=== PATIENT | female | born 1985 | race American Indian/Alaskan Native ===

== ENCOUNTER 2016-11-30 19:45 | Emergency (ER) | payer OTHER | END 2016-11-30 22:00 | disposition left against medical advice (07) | LOC: ED 19:45 | DX: L02.222 Furuncle of back [any part, except buttock and flank] (principal); R68.83 Chills (without fever); Z53.21 Procedure and treatment not carried out due to patient leaving prior to being seen by health care provider ==

== ENCOUNTER 2016-12-01 07:58 | Emergency (ER) | payer OTHER ==
[2016-12-01 08:11] VITALS: BP 119/82
[2016-12-01] MEDS ORDERED: XYLOCAINE 1% 20 mL INFILTRATI ONE (08:24)
[2016-12-01] MEDS ORDERED: XYLOCAINE 1% MPF 5 mL ONE (08:33)
--- NOTE | 2016-12-01 09:42 | Emergency Department Report ---
Abscess Boil HPI - HPI Chief Complaint: Skin/Abscess/Foreign Body Stated Complaint: FEVER/BOIL ON PRIVATE AREA Time Seen by Provider: 12/01/16 08:18 Duration: 3 Days Location: Perianal Severity: Moderate History: Yes Fever (reports last night (subjective)), Yes Pain, Yes Previous History, No Purulent Drainage, No Numbness, No Foreign Body, No Insect Bite Home Medications: Previous Rx's Medication Instructions Recorded Last Taken Type Ibuprofen [Motrin] 800 mg PO Q8HR PRN #15 tablet 12/01/16 Unknown Rx Sulfamethoxazole/Trimethoprim 1 each PO BID #20 tablet 12/01/16 Unknown Rx [Bactrim DS TAB] Allergies/Adverse Reactions: Allergies Allergy/AdvReac Type Severity Reaction Status Date / Time morphine AdvReac Itching Verified 12/01/16 08:06 strawberry AdvReac Swelling Verified 07/06/16 19:25 tomato AdvReac Swelling Verified 07/06/16 19:25 [email or web address] Allergy Swelling Uncoded 12/01/16 08:04 ED Review of Systems ROS: Stated complaint: FEVER/BOIL ON PRIVATE AREA Other details as noted in HPI Comment: All other systems reviewed and negative Constitutional: fever. denies: chills Eyes: denies: eye pain, eye discharge, vision change ENT: denies: ear pain, throat pain Respiratory: denies: cough, shortness of breath, wheezing Cardiovascular: denies: chest pain, palpitations Endocrine: no symptoms reported Gastrointestinal: denies: abdominal pain, nausea, diarrhea Genitourinary: denies: urgency, dysuria, discharge Musculoskeletal: denies: back pain, joint swelling, arthralgia Skin: denies: rash, lesions Neurological: denies: headache, weakness, paresthesias Psychiatric: denies: anxiety, depression Hematological/Lymphatic: denies: easy bleeding, easy bruising ED Past Medical Hx - Past Medical History Previous Medical History?: No - Surgical History Additional Surgical History: right shoulder rotator cuff surgery - Social History Smoking Status: Current Every Day Smoker Substance Use Type: None - Medications Home Medications: Home Medications Medication Instructions Recorded Confirmed Last Taken Type Ibuprofen [Motrin] 800 mg PO Q8HR PRN #15 tablet 12/01/16 Unknown Rx Sulfamethoxazole/Trimethoprim 1 each PO BID #20 tablet 12/01/16 Unknown Rx [Bactrim DS TAB] ED Abscess Boil Physical Exam - Exam General: Vital signs noted. No distress. Alert and acting appropriately. Size: 2 cm (R labial) Exam: Yes Tenderness, Yes Fluctuance, Yes Normal Neurologic Exam, Yes Normal Circulation, No Surrounding Cellulites/Erythema, No Lymphangitis, No Crepitation , No Heart Murmur I & D Note - I & D Note I & D Note: Pt prepped in normal sterile fashion. 3 mL of 1% lidocaine injected. Betadine applied. Small incision with 11 blade made. Small amount of purulent drainage noted. Dressing applied. Pt tolerated procedure well. ED Course Vital Signs 12/01/16 08:00 Temperature 98.4 F Pulse Rate 100 H Respiratory 18 Rate Blood Pressure 119/82 O2 Sat by Pulse 99 Oximetry - Reevaluation(s) Reevaluation #1: 12/01/16 08:48 nad Critical care attestation.: If time is entered above; I have spent that time in minutes in the direct care of this critically ill patient, excluding procedure time. ED Medical Decision Making - Medical Decision Making Pt with R labial abscess s/p I&D. Tolerated well. Follow up advised. Stable for d/c. - Differential Diagnosis abscess, cellulitis ED Disposition Clinical Impression: Abscess of labia Disposition: DISCHARGED TO HOME OR SELFCARE Is pt being admited?: No Condition: Good Instructions: Abscess (ED) Prescriptions: Ibuprofen [Motrin] 800 mg PO Q8HR PRN #15 tablet PRN Reason: Pain Sulfamethoxazole/Trimethoprim [Bactrim DS TAB] 1 each PO BID #20 tablet Referrals: PRIMARY CAREMD [Primary Care Provider] - 3-5 Days RICHARD DEE MD [Staff Physician] - 3-5 Days Time of Disposition: 08:54
== END 2016-12-01 09:00 | disposition home or self-care (01) ==
LOC: ED 07:58
DX: N76.4 Abscess of vulva (principal); F17.200 Nicotine dependence, unspecified, uncomplicated; Z91.018 Allergy to other foods; Z88.5 Allergy status to narcotic agent

== ENCOUNTER 2017-02-27 08:08 | Emergency (ER) | payer OTHER ==
[2017-02-27] MEDS ORDERED: TYLENOL ONE (08:12)
[2017-02-27] MEDS ORDERED: TYLENOL PO ONE (08:16)
--- NOTE | 2017-02-27 11:22 | Emergency Department Report ---
ED Fever HPI - General Chief Complaint: Fever Stated Complaint: BODY HURTING Time Seen by Provider: 02/27/17 10:52 - History of Present Illness Initial Comments: 31-year-old female past medical history none presents with complaint of 3-4 days of body aches and decreased appetite and intermittent fevers. Patient is awake alert and oriented 3 not in acute distress denies any earache, mild sore throat denies any cough no chest pain or shortness of breath denies any dysuria. 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 ED Review of Systems ROS: Stated complaint: BODY HURTING Other details as noted in HPI Constitutional: denies: chills, fever Eyes: denies: eye pain, eye discharge, vision change ENT: denies: ear pain, throat pain Respiratory: denies: cough, shortness of breath, wheezing Cardiovascular: denies: chest pain, palpitations Endocrine: no symptoms reported Gastrointestinal: denies: abdominal pain, nausea, diarrhea Genitourinary: denies: urgency, dysuria, discharge Musculoskeletal: denies: back pain, joint swelling, arthralgia Skin: denies: rash, lesions Neurological: denies: headache, weakness, paresthesias Psychiatric: denies: anxiety, depression Hematological/Lymphatic: denies: easy bleeding, easy bruising ED Past Medical Hx - Past Medical History Previous Medical History?: No - Surgical History Past Surgical History?: Yes Additional Surgical History: right shoulder rotator cuff surgery - Social History Smoking Status: Never Smoker Substance Use Type: None - Medications Home Medications: Home Medications Medication Instructions Recorded Confirmed Last Taken Type Ibuprofen [Motrin] 800 mg PO Q8HR PRN #15 tablet 12/01/16 Unknown Rx Sulfamethoxazole/Trimethoprim 1 each PO BID #20 tablet 12/01/16 Unknown Rx [Bactrim DS TAB] Naproxen [Naprosyn TAB] 500 mg PO BID PRN #30 tablet 02/27/17 Unknown Rx Nitrofurantoin [place]/M-Cryst 100 mg PO Q12HR #14 capsule 02/27/17 Unknown Rx [Macrobid CAP] Ondansetron [Zofran Odt] 4 mg PO Q8H PRN #20 tab.rapdis 02/27/17 Unknown Rx ED Physical Exam - General Limitations: No Limitations General appearance: alert, in no apparent distress - Head Head exam: Present: atraumatic, normocephalic - Eye Eye exam: Present: normal appearance, PERRL, EOMI - ENT ENT exam: Present: mucous membranes moist - Neck Neck exam: Present: normal inspection, full ROM - Respiratory Respiratory exam: Present: normal lung sounds bilaterally. Absent: respiratory distress - Cardiovascular Cardiovascular Exam: Present: regular rate, normal rhythm. Absent: systolic murmur, diastolic murmur, rubs, gallop - GI/Abdominal GI/Abdominal exam: Present: soft, normal bowel sounds - Extremities Exam Extremities exam: Present: normal inspection - Back Exam Back exam: Present: normal inspection - Neurological Exam Neurological exam: Present: alert, oriented X3 - Psychiatric Psychiatric exam: Present: normal affect, normal mood - Skin Skin exam: Present: warm, dry, intact, normal color. Absent: rash ED Course Vital Signs 02/27/17 02/27/17 08:12 11:35 Temperature 100.5 F H Pulse Rate 110 H Respiratory 18 16 Rate Blood Pressure 129/82 O2 Sat by Pulse 98 Oximetry ED Medical Decision Making - Medical Decision Making A/P: Urinary tract infection 1-Macrobid twice a day 7 days 2-naproxen when necessary 3-patient has no CVA tenderness will treat her cystitis/UTI 4-follow up with primary care doctor. I advised patient if she develops nausea vomiting fever chills or inability to tolerate by mouth to return to the ED Critical care attestation.: If time is entered above; I have spent that time in minutes in the direct care of this critically ill patient, excluding procedure time. ED Disposition Clinical Impression: Urinary tract infection Qualifiers: Urinary tract infection type: acute cystitis Hematuria presence: without hematuria Qualified Code(s): N30.00 - Acute cystitis without hematuria Fever Qualifiers: Fever type: unspecified Qualified Code(s): R50.9 - Fever, unspecified Disposition: DISCHARGED TO HOME OR SELFCARE Is pt being admited?: No Does the pt Need Aspirin: No Condition: Stable Instructions: Urinary Tract Infection in Women (ED), Fever in Adults (ED) Prescriptions: Naproxen [Naprosyn TAB] 500 mg PO BID PRN #30 tablet PRN Reason: Fever Nitrofurantoin [place]osh/M-Cryst [Macrobid CAP] 100 mg PO Q12HR #14 capsule Ondansetron [Zofran Odt] 4 mg PO Q8H PRN #20 tab.rapdis PRN Reason: Nausea Referrals: ADITYA JUAREZ MD [Staff Physician] - 3-5 Days [facility] [Provider Group] - 3-5 Days Forms: Work/School Release Form(ED) Time of Disposition: 11:59
[2017-02-27] MEDS ORDERED: MOTRIN PO ONE (11:24)
[2017-02-27] MEDS ORDERED: ZOFRAN ORAL LIQ PO ONE (11:25)
[2017-02-27 11:46] LABS: Bacteria,Urine 2+ /HPF (Negative); Bilirubin,Urine NEG (Negative); Blood,Urine SM (Negative); Ketones,Urine NEG (Negative); Leukocyte Esterase,Urine MOD (Negative); Nitrite,Urine NEG (Negative); Protein,Urine <15 mg/dL mg/dL (Negative)
[2017-02-27 12:12] VITALS: BP 126/78
== END 2017-02-27 12:12 | disposition home or self-care (01) ==
LOC: ED 08:08
DX: N30.00 Acute cystitis without hematuria (principal); R50.9 Fever, unspecified
CPT/HCPCS: 81001; 81025; 87086; 99283; Q0162

== ENCOUNTER 2017-05-03 07:07 | Emergency (ER) | payer OTHER ==
[2017-05-03 08:54] VITALS: BP 94/57
--- NOTE | 2017-05-03 09:16 | Emergency Department Report ---
HPI - General Chief Complaint: Urogenital-Female Time Seen by Provider: 05/03/17 08:44 - HPI HPI: Patient is a 32-year-old female who presents to ED complaining of vaginal pain and swelling 1 week. Patient states about a week ago she shaved her vaginal area. Patient states that she noticed right labia pain and swelling. She denies vaginal discharge, vaginal bleeding, dysuria, fever, nausea, vomiting, abdominal pain. ED Past Medical Hx - Past Medical History Previous Medical History?: Yes Additional medical history: Vaginal boils - Surgical History Past Surgical History?: Yes Additional Surgical History: right shoulder rotator cuff surgery - Social History Smoking Status: Current Every Day Smoker Substance Use Type: Alcohol, Non Opiate Pain - Medications Home Medications: Home Medications Medication Instructions Recorded Confirmed Last Taken Type Naproxen [Naprosyn TAB] 500 mg PO BID PRN #30 tablet 02/27/17 Unknown Rx Nitrofurantoin [place]/M-Cryst 100 mg PO Q12HR #14 capsule 02/27/17 Unknown Rx [Macrobid CAP] Ondansetron [Zofran Odt] 4 mg PO Q8H PRN #20 tab.rapdis 02/27/17 Unknown Rx Ibuprofen [Motrin 800 MG tab] 800 mg PO Q8HR PRN #15 tablet 05/03/17 Unknown Rx Sulfamethoxazole/Trimethoprim 1 each PO BID #20 tablet 05/03/17 Unknown Rx [Bactrim DS TAB] ED Review of Systems ROS: Stated complaint: VAGINAL RASH Other details as noted in HPI Constitutional: denies: chills, fever Eyes: denies: eye pain, eye discharge, vision change ENT: denies: ear pain, throat pain Respiratory: denies: cough, shortness of breath, wheezing Cardiovascular: denies: chest pain, palpitations Endocrine: no symptoms reported Gastrointestinal: denies: abdominal pain, nausea, diarrhea Genitourinary: denies: urgency, dysuria, discharge Musculoskeletal: denies: back pain, joint swelling, arthralgia Skin: denies: rash, lesions Neurological: denies: headache, weakness, paresthesias Psychiatric: denies: anxiety, depression Hematological/Lymphatic: denies: easy bleeding, easy bruising Physical Exam - Physical Exam Vital Signs: Vital Signs 05/03/17 05/03/17 07:51 08:54 Temperature 98.4 F 98.8 F Pulse Rate 78 77 Respiratory 20 20 Rate Blood Pressure 116/64 Blood Pressure 94/57 [Left] O2 Sat by Pulse 100 99 Oximetry Physical Exam: GENERAL: Alert and oriented x3, no apparent distress, Normal Gait, atraumatic. HEAD: Head is normocephalic and a-traumatic. LUNGS: Symetrical with respiration, No wheezing, no rales or crackles, CTAB. HEART: S1, S2 present, regular rate and rhythm without murmur, no rubs, no gallops. Non tender to palpation ABDOMEN: No organomegaly was noted,Positive bowel sounds, soft, and non- distended. . Nontender to palpation on all Quadrants, NO CVA tenderness. GENITOURINARY: External genitalia right labial majora swollen, tender to palpation, active drainage. Vaginal vault is without discharge. Uterus is noted to be of normal size and nontender. No cervical motion tenderness. No masses are palpated. The adnexa are without masses or tenderness. SKIN: Warm and dry, No lesions, No ulceration or induration present. ED Course Vital Signs 05/03/17 05/03/17 07:51 08:54 Temperature 98.4 F 98.8 F Pulse Rate 78 77 Respiratory 20 20 Rate Blood Pressure 116/64 Blood Pressure 94/57 [Left] O2 Sat by Pulse 100 99 Oximetry - I & D Right Genitals Type of Procedure: Simple Site: labia majora Blade Size: 11 I & D Procedure: betadine prep, sterile drapes applied, sterile dressing applied ED Medical Decision Making - Medical Decision Making 32-year-old female presents with labial abscess/UTI ED course: UA and test ordered. Urinalysis positive for anterior test neg. Discussed the patient positive UA and will be sent home with a trial of antibiotics for UTI and abscess Patient positioned appropriately, 4cc lidocaine with/without epinephrine was used as a local anesthetic. #11 blade scalpal used for single incision. Additional local anesthetic injected into surrounding viable tissue prior to blunt dissection of loculated adhesions. Copius drainage of pus . Procedure tolerated without complications. Wound dressed with sterile 4x4 guaze and paper tape. Pt tolerated procedure well. Discussed the patient to follow up with primary care physician. Vital signs are normal patient is in no acute distress. Patient states to feeling much better. Discussed the patient take medication as prescribed Critical care attestation.: If time is entered above; I have spent that time in minutes in the direct care of this critically ill patient, excluding procedure time. ED Disposition Clinical Impression: Abscess of right genital labia UTI (urinary tract infection) Qualifiers: Urinary tract infection type: acute cystitis Hematuria presence: with hematuria Qualified Code(s): N30.01 - Acute cystitis with hematuria Disposition: TO HOME OR SELFCARE Is pt being admited?: No Does the pt Need Aspirin: No Condition: Stable Instructions: Abscess (ED), Abscess Incision and Drainage (ED), Urinary Tract Infection in Women (ED) Additional Instructions: Follow-up with primary care in 5 days Prescriptions: Ibuprofen [Motrin 800 MG tab] 800 mg PO Q8HR PRN #15 tablet PRN Reason: Pain Sulfamethoxazole/Trimethoprim [Bactrim DS TAB] 1 each PO BID #20 tablet Referrals: PRIMARY CARE, [Primary Care Provider] [facility] Days [facility] [Outside] - 3-5 Days [facility] [Outside] - 3-5 Days Forms: Work/School Release Form(ED) Time of Disposition: 10:49
[2017-05-03 09:39] LABS: Bacteria,Urine 1+ /HPF (Negative); Bilirubin,Urine NEG (Negative); Blood,Urine SM (Negative); Ketones,Urine TR mg/dL (Negative); Leukocyte Esterase,Urine SM (Negative); Mucus,Urine FEW /HPF; Nitrite,Urine NEG (Negative); Protein,Urine <15 mg/dL mg/dL (Negative)
[2017-05-03] MEDS ORDERED: XYLOCAINE 1% 20 mL INFILTRATI NR (10:15)
== END 2017-05-03 10:59 | disposition home or self-care (01) ==
LOC: ED 07:07
DX: N30.01 Acute cystitis with hematuria (principal); N76.4 Abscess of vulva; F17.200 Nicotine dependence, unspecified, uncomplicated
CPT/HCPCS: 81001; 81025; 99283

== ENCOUNTER 2017-07-08 08:49 | Emergency (ER) | payer OTHER ==
[2017-07-08 09:04] VITALS: BP 111/68
--- NOTE | 2017-07-08 11:13 | Emergency Department Report ---
ED ENT HPI - General Chief complaint: Dental/Oral Stated complaint: TOOTHACHE Time Seen by Provider: 07/08/17 11:03 Source: patient Mode of arrival: Ambulatory Limitations: No Limitations - History of Present Illness Initial comments: PT c/o R upper toothache x 2 weeks. PT states when her tooth originally started to hurt, she had facial swelling. PT states she went to [facility] and was given RX for PCN, Tramadol, and a liquid. PT states the swelling went down but her tooth still aches. PT states she was instructed to follow up with Dentist. PT states she called a Dentist and was dx with inflammation over the phone. PT states the dentist office told her to get the inflammation down and then they would see her. PT states today her toothache was 10/10, she took some Tylenol and it decreased to 8/10 MD complaint: tooth pain -: Gradual, week(s) (two ) 1 - pain Severity: severe Severity scale (0 -10): 8 Consistency: constant Improves with: other medication (PCN and Tylenol ) Worsens with: eating Context- Dental: history of dental caries, poor dental care Associated Symptoms: toothache. denies: fever, gum swelling, sore throat - Related Data Allergies Allergy/AdvReac Type Severity Reaction Status Date / Time morphine AdvReac Itching Verified 12/01/16 08:06 strawberry AdvReac Swelling Verified 07/06/16 19:25 tomato AdvReac Swelling Verified 07/06/16 19:25 [email or web address] Allergy Swelling Uncoded 12/01/16 08:04 ED Dental HPI - General Chief complaint: Dental/Oral Stated complaint: TOOTHACHE Time Seen by Provider: 07/08/17 11:03 Source: patient Mode of arrival: Ambulatory Limitations: No Limitations - Related Data Allergies Allergy/AdvReac Type Severity Reaction Status Date / Time morphine AdvReac Itching Verified 12/01/16 08:06 strawberry AdvReac Swelling Verified 07/06/16 19:25 tomato AdvReac Swelling Verified 07/06/16 19:25 [email or web address] Allergy Swelling Uncoded 12/01/16 08:04 ED Review of Systems ROS: Stated complaint: TOOTHACHE Other details as noted in HPI Comment: All other systems reviewed and negative Constitutional: other (denies facial swelling ). denies: chills, fever ENT: dental pain Gastrointestinal: denies: nausea, vomiting Genitourinary: denies: abnormal menses Skin: denies: change in color ED Past Medical Hx - Past Medical History Previous Medical History?: No Additional medical history: Vaginal boils - Surgical History Past Surgical History?: Yes Additional Surgical History: right shoulder rotator cuff surgery - Social History Smoking Status: Current Every Day Smoker Substance Use Type: None ED Physical Exam - General Limitations: No Limitations General appearance: alert, in no apparent distress - Head Head exam: Present: atraumatic, normocephalic, normal inspection - Eye Eye exam: Present: normal appearance, PERRL, EOMI. Absent: conjunctival injection - ENT ENT exam: Present: normal orophraynx, mucous membranes moist, normal external ear exam - Expanded ENT Exam Expanded Mouth exam: Absent: drooling, trismus Teeth exam: Present: dental caries (multiple severely decayed teeth ), dental tenderness # (6, 7, 8 ). Absent: gingival enlargement Throat exam: Positive: normal inspection. Negative: tonsillar erythema, tonsillomegaly, tonsillar exudate - Neck Neck exam: Present: normal inspection, full ROM. Absent: tenderness, lymphadenopathy - Respiratory Respiratory exam: Present: normal lung sounds bilaterally. Absent: respiratory distress, chest wall tenderness - Cardiovascular Cardiovascular Exam: Present: regular rate, normal rhythm, normal heart sounds - GI/Abdominal GI/Abdominal exam: Present: soft. Absent: tenderness - Extremities Exam Extremities exam: Present: normal inspection, full ROM - Back Exam Back exam: Present: normal inspection, full ROM. Absent: tenderness, CVA tenderness (R), CVA tenderness (L) - Neurological Exam Neurological exam: Present: alert, oriented X3, normal gait - Psychiatric Psychiatric exam: Present: normal affect, normal mood - Skin Skin exam: Present: warm, dry, intact ED Course Vital Signs 07/08/17 08:59 Temperature 98.3 F Pulse Rate 79 Respiratory 16 Rate Blood Pressure 111/68 O2 Sat by Pulse 100 Oximetry - Reevaluation(s) Reevaluation #1: 07/08/17 11:14 PT aware of dx and plan of care. She is instructed to follow up with Dentist. She has no questions at this time. - Pulse Oximetry Interpretation Digit-Finger Initial Pulse Oximetry Readin Actions Taken: none ED Medical Decision Making - Differential Diagnosis toothache, dental abscess Critical Care Time: No Critical care attestation.: If time is entered above; I have spent that time in minutes in the direct care of this critically ill patient, excluding procedure time. ED Disposition Clinical Impression: Toothache, Dental caries Disposition: TO HOME OR SELFCARE Is pt being admited?: No Does the pt Need Aspirin: No Condition: Stable Instructions: Dental Abscess (ED), Dental Caries (ED), Toothache (ED) Additional Instructions: Good oral hygiene Follow up with Dentist in 3-5 days No driving or alcohol if you are needing to take Ultram for your pain Referrals: PRIMARY CARE, [Primary Care Provider] - 3-5 Days Time of Disposition: 11:17
== END 2017-07-08 11:23 | disposition home or self-care (01) ==
LOC: ED 08:49
DX: K02.9 Dental caries, unspecified (principal); F17.200 Nicotine dependence, unspecified, uncomplicated; Z88.6 Allergy status to analgesic agent; Z91.018 Allergy to other foods
CPT/HCPCS: 99282

== ENCOUNTER 2020-03-22 11:44 | Emergency (ER) | payer SELFPAY ==
[2020-03-22 11:52] VITALS: BP 120/61
--- NOTE | 2020-03-22 12:23 | Emergency Department Report ---
Chief Complaint: Hyperglycemia Stated Complaint: HIGH BLOOD SUGAR/MED REFILL Time Seen by Provider: 03/22/20 12:17 - HPI History of Present Illness: pt states that her sugar has been elevated at home. she states last night it was 331, states she drank koolaid at [employer]. she states that she has not taking her metformin for a month. she does not have a PCP. she has increased thirst and urination. she denies any fever, n/v/d, no abd pain, dysuria, CP, or SOB. no other PMHx. allergy: morphine Vitals are normal Blood glucose is 214 Medical screening examination performed and there is no threat to life or limb at this time Discussed in detail with patient diet and exercise Discussed with patient long-term risks associated with diabetes Dr. Demarco Sierra, ER attending reprinted patient's previous medication Discussed strict return precautions Patient given multiple community resources advised pt please take your metformin as prescribed. increase your water intake. avoid sugar intake including foods, drinks, candy, fruit juices, decrease your carbohydrate intake (pasta, rice, white bread). incorporate 30 minutes of daily exercise. follow up with a primary care doctor in the next 2-3 days. it is very important you follow up for chronic management of your diabetes and future refills. return to the emergency room for any new or worsening symptoms. - Exam Vital Signs: Vital Signs 03/22/20 11:48 Temperature 98.7 F Pulse Rate 89 Respiratory 20 Rate Blood Pressure 120/61 O2 Sat by Pulse 98 Oximetry MSE screening note: Focused history and physical exam performed. ED Disposition for MSE Clinical Impression: Type 2 diabetes mellitus Qualifiers: Diabetes mellitus termite inspector insulin use: without [place] [facility] use Diabetes mellitus complication status: with hyperglycemia Qualified Code(s): E11.65 - Type 2 diabetes mellitus with hyperglycemia Disposition: Z-07 MED SCREENING EXAM-LEFT Is pt being admited?: No Does the pt Need Aspirin: No Condition: Stable Instructions: Diabetes Mellitus Type 2 in Adults (ED) Additional Instructions: please take your metformin as prescribed. increase your water intake. avoid sugar intake including foods, drinks, candy, fruit juices, decrease your carbohydrate intake (pasta, rice, white bread). incorporate 30 minutes of daily exercise. follow up with a primary care doctor in the next 2-3 days. it is very important you follow up for chronic management of your diabetes and future refills. return to the emergency room for any new or worsening symptoms. Referrals: DWIGHT PINEDO MD [Staff Physician] - 3-5 Days [facility] [Provider Group] - 3-5 Days [facility], [LAB/CONTRACT] - 3-5 Days [facility] [Outside] - 3-5 Days Time of Disposition: 12:24 Print Language: PERSIAN
== END 2020-03-22 12:37 | disposition left against medical advice (07) ==
LOC: ED 11:44
DX: E11.65 Type 2 diabetes mellitus with hyperglycemia (principal)
CPT/HCPCS: 82962; 99282

== ENCOUNTER 2021-02-25 21:36 | Emergency (ER) | payer SELFPAY ==
[2021-02-25] MEDS ORDERED: LIDOCAINE (1%) 10 MG/1 ML VIAL 20 ML MDV INFILTRATI ONE (23:25)
[2021-02-25] MEDS ORDERED: ONDANSETRON 4 MG ODT TAB PO ONE (23:25)
[2021-02-25] MEDS ORDERED: CLINDAMYCIN 300 MG CAP PO ONE (23:25)
[2021-02-25] MEDS ORDERED: oxyCODONE /ACETAMINOPHEN 5-325MG TAB PO ONE (23:25)
--- NOTE | 2021-02-26 00:09 | Emergency Department Report ---
ED General Adult HPI - General Chief complaint: Skin/Abscess/Foreign Body Stated complaint: POSSIBLE ABSCESS Source: patient Mode of arrival: Ambulatory Limitations: No Limitations - History of Present Illness Initial comments: Patient is a 35-year-old -[place] female with a history of vpu-rtrdmxm-[id number] diabetes who presents to the ED with complaint of acute onset persistent painful swollen mild erythematous maculopapular rash on pilonidal area for the last 2 weeks, worse in the last 3 days. Patient states that she initially developed similar symptoms about 3 or 4 weeks ago and was treated for the same at another hospital emergency department where she underwent I&D procedure for the same and was given a prescription of oral Bactrim DS to take twice a day. Patient states that she has been taking the medication but she is yet to finish all his antibiotics. Patient states that her symptoms got worse in the last 3 days such that she has not been able to walk or sit down because of worsening pain and swelling. Patient denies dizziness, syncope, chest pain or shortness of breath, dizziness, syncope, nausea and vomiting or diarrhea, traumatic injury, abdominal pain, fall or change in vision. MD Complaint: swollen, painful erythematous rash on pilonidal area -: Sudden, week(s) (2) Location: buttocks Radiation: non-radiation Severity scale (0 -10): 8 Quality: aching, sharp Consistency: constant Improves with: none Worsens with: movement Associated Symptoms: denies other symptoms, fever/chills, rash (Swollen, severely painful mildly erythematous maculopapular rash on pilonidal area). denies: chest pain, diaphoresis, headaches, loss of appetite, malaise, nausea/vomiting, seizure, shortness of breath, syncope, weakness, other Treatments Prior to Arrival: NSAID - Related Data Previous Rx's Medication Instructions Recorded Last Taken Type Amoxicillin 500 mg PO BID #20 capsule 07/08/17 Unknown Rx Ibuprofen [Motrin] 600 mg PO Q8H PRN #15 tablet 07/08/17 Unknown Rx traMADoL [Ultram] 50 mg PO Q6HR PRN #7 tablet 07/08/17 Unknown Rx Sulfamethoxazole/Trimethoprim 1 each PO BID #20 tablet 03/09/20 Unknown Rx [Bactrim DS TAB] Clindamycin [Clindamycin CAP] 300 mg PO Q6H #40 cap 02/26/21 Unknown Rx Ibuprofen [Motrin 800 MG tab] 800 mg PO Q8HR PRN #30 tablet 02/26/21 Unknown Rx Allergies Allergy/AdvReac Type Severity Reaction Status Date / Time morphine AdvReac Itching Verified 12/01/16 08:06 strawberry AdvReac Swelling Verified 07/06/16 19:25 tomato AdvReac Swelling Verified 07/06/16 19:25 [email or web address] Allergy Swelling Uncoded 12/01/16 08:04 ED Review of Systems ROS: Stated complaint: POSSIBLE ABSCESS Other details as noted in HPI Constitutional: chills, fever, malaise Eyes: denies: eye pain, eye discharge, vision change ENT: denies: ear pain, throat pain Respiratory: denies: cough, shortness of breath, wheezing Cardiovascular: denies: chest pain, palpitations Endocrine: no symptoms reported Gastrointestinal: denies: abdominal pain, nausea, vomiting, diarrhea Genitourinary: denies: urgency, dysuria, discharge Musculoskeletal: myalgia. denies: back pain, joint swelling, arthralgia Skin: rash (swollen, mildly erythematous maculopapular rash on pilonidal area), change in color. denies: lesions, change in hair/nails, pruritus, other Neurological: denies: headache, weakness, paresthesias Psychiatric: denies: anxiety, depression Hematological/Lymphatic: denies: easy bleeding, easy bruising ED Past Medical Hx - Past Medical History Previous Medical History?: Yes Hx Diabetes: Yes Additional medical history: Vaginal boils - Surgical History Past Surgical History?: Yes Additional Surgical History: right shoulder rotator cuff surgery - Social History Smoking Status: Current Every Day Smoker Substance Use Type: None - Medications Home Medications: Home Medications Medication Instructions Recorded Confirmed Last Taken Type Amoxicillin 500 mg PO BID #20 capsule 07/08/17 Unknown Rx Ibuprofen [Motrin] 600 mg PO Q8H PRN #15 tablet 07/08/17 Unknown Rx traMADoL [Ultram] 50 mg PO Q6HR PRN #7 tablet 07/08/17 Unknown Rx Sulfamethoxazole/Trimethoprim 1 each PO BID #20 tablet 03/09/20 Unknown Rx [Bactrim DS TAB] Clindamycin [Clindamycin CAP] 300 mg PO Q6H #40 cap 02/26/21 Unknown Rx Ibuprofen [Motrin 800 MG tab] 800 mg PO Q8HR PRN #30 tablet 02/26/21 Unknown Rx ED Physical Exam - General Limitations: No Limitations General appearance: alert, in no apparent distress - Head Head exam: Present: atraumatic, normocephalic, normal inspection - Eye Eye exam: Present: normal appearance, PERRL, EOMI Pupils: Present: normal accommodation - ENT ENT exam: Present: normal exam, normal orophraynx, mucous membranes moist, TM's normal bilaterally, normal external ear exam - Neck Neck exam: Present: normal inspection, full ROM - Respiratory Respiratory exam: Present: normal lung sounds bilaterally. Absent: respiratory distress, wheezes, rales, rhonchi, chest wall tenderness, accessory muscle use, decreased breath sounds, prolonged expiratory - Cardiovascular Cardiovascular Exam: Present: normal rhythm, tachycardia, normal heart sounds. Absent: systolic murmur, diastolic murmur, rubs, gallop - GI/Abdominal GI/Abdominal exam: Present: soft, normal bowel sounds. Absent: tenderness, guarding, hyperactive bowel sounds, hypoactive bowel sounds, organomegaly - Extremities Exam Extremities exam: Present: normal inspection, full ROM, normal capillary refill - Back Exam Back exam: Present: normal inspection, full ROM. Absent: tenderness, CVA tenderness (R), CVA tenderness (L), muscle spasm, paraspinal tenderness - Neurological Exam Neurological exam: Present: alert, oriented X3, CN II-XII intact, normal gait, reflexes normal - Psychiatric Psychiatric exam: Present: normal affect, normal mood - Skin Skin exam: Present: warm, dry, intact, normal color, rash (Swollen severely tender, mildly erythematous fluctuant rash on pilonidal area), erythema ED Course Vital Signs 02/25/21 22:03 Temperature 100.1 F H Pulse Rate 108 H Respiratory 18 Rate Blood Pressure 113/62 O2 Sat by Pulse 99 Oximetry - I & D Sacrum Type of Procedure: Simple Site: Pilonidal area Blade Size: 11 I & D Procedure: betadine prep, sterile drapes applied, sterile dressing applied, gauze wick placed Progress: The area was cleaned with normal saline and Betadine solution, and lidocaine 5 cc solution was infiltrated into the area for anesthesia. When the anesthesia was fully achieved, the area was incised with a scalpel blade #11, and copious amounts of thick purulent discharge drained from the area. The wound was then debrided extensively with normal saline and fluid collections were broken with hemostat. The wound was then packed with iodoform quarter inch gauze and dressed appropriately. Patient tolerated procedure well. ED Medical Decision Making - Medical Decision Making This is a 35-year-old -[place] female with a history of wiu-rbdcgyu-bzytccqtn diabetes who presents to the ED with complaint of acute onset persistent painful swollen mild erythematous maculopapular rash on pilonidal area for the last 2 weeks, worse in the last 3 days. Patient states that she initially developed similar symptoms about 3 or 4 weeks ago and was treated for the same at another hospital emergency department where she underwent I&D procedure for the same and was given a prescription of oral Bactrim DS to take twice a day. Patient states that she has been taking the medication but she is yet to finish all his antibiotics. Patient states that her symptoms got worse in the last 3 days such that she has not been able to walk or sit down because of worsening pain and swelling. In the ED, patient is alert and oriented x3 and is not in any distress. Patient however is febrile and tachycardic in triage. Patient was treated for pain in the ED and also given oral antibiotics in the ED. The area was cleaned with normal saline and Betadine solution, and lidocaine 5 cc solution was infiltrated into the area for anesthesia. When the anesthesia was fully achieved, the area was incised with a scalpel blade #11, and copious amounts of thick purulent discharge drained from the area. The wound was then debrided extensively with normal saline and fluid collections were broken with hemostat. The wound was then packed with iodoform quarter inch gauze and dressed appropriately. Patient tolerated procedure well. On reevaluation, patient's pain is well controlled medications. Fever and tachycardia resolved with medications. Patient was therefore discharged home on pain medications and antibiotics and advised to continue taking the previously prescribed antibiotics to the end and to return to the ED immediately if symptoms get worse. Patient was otherwise advised to return to the ED in 2 days for wound recheck and packing removal. Patient was otherwise advised to follow- up with her primary care physician in 7 to 10 days for reevaluation. - Differential Diagnosis abscess; cellulitis; folliculitis; hidradenitis suppurativa Critical care attestation.: If time is entered above; I have spent that time in minutes in the direct care of this critically ill patient, excluding procedure time. ED Disposition Clinical Impression: Sacrococcygeal pilonidal cyst with abscess, Cellulitis and abscess of buttock Disposition: TO HOME OR SELFCARE Is pt being admited?: No Does the pt Need Aspirin: No Condition: Stable Instructions: Skin Abscess, [id number], Cellulitis, Adult, [id number], Incision and Drainage, Care After, Pilonidal Cyst Drainage, Care After Additional Instructions: Take medications as advised, drink plenty of fluids and follow-up with your primary care physician in 7 to 10 days for reevaluation. Return to the ED immediately if symptoms get worse. Otherwise return to the ED in 2 days for wound recheck and packing removal. Prescriptions: Clindamycin [Clindamycin CAP] 300 mg PO Q6H #40 cap Ibuprofen [Motrin 800 MG tab] 800 mg PO Q8HR PRN #30 tablet PRN Reason: Pain , Severe (7-10) Referrals: [facility] [Provider Group] - 7-10 days Forms: Work/School Release Form(ED) Time of Disposition: 00:11 Print Language: TRISTANIAN
[2021-02-26 03:16] VITALS: BP 105/65
== END 2021-02-26 01:35 | disposition home or self-care (01) ==
LOC: ED 21:36
DX: L05.91 Pilonidal cyst without abscess (principal); E11.9 Type 2 diabetes mellitus without complications; F17.200 Nicotine dependence, unspecified, uncomplicated; Z98.890 Other specified postprocedural states; Z79.899 Other long term (current) drug therapy; Z88.6 Allergy status to analgesic agent; Z91.018 Allergy to other foods
CPT/HCPCS: 99282; Q0162

== ENCOUNTER 2021-05-03 13:10 | Emergency (ER) | payer SELFPAY ==
[2021-05-03 14:26] VITALS: BP 121/71
--- NOTE | 2021-05-03 16:05 | Emergency Department Report ---
- General Chief complaint: Skin/Abscess/Foreign Body Stated complaint: BOIL Time Seen by Provider: 05/03/21 15:34 Source: patient Mode of arrival: Ambulatory Limitations: No Limitations - History of Present Illness Initial comments: Patient is a 36-year-old female presents emergency room complaints of a boil to her bottom that began 2 to 3 days ago. She states that she has had these frequently and has had to have multiple I&D's in the past. She has never seen a general surgeon. She denies any drainage, fever, nausea, vomiting, diarrhea, chills. No past medical history. Allergy to morphine. - Related Data Previous Rx's Medication Instructions Recorded Last Taken Type Amoxicillin 500 mg PO BID #20 capsule 07/08/17 Unknown Rx Ibuprofen [Motrin] 600 mg PO Q8H PRN #15 tablet 07/08/17 Unknown Rx traMADoL [Ultram] 50 mg PO Q6HR PRN #7 tablet 07/08/17 Unknown Rx Sulfamethoxazole/Trimethoprim 1 each PO BID #20 tablet 03/09/20 Unknown Rx [Bactrim DS TAB] Clindamycin [Clindamycin CAP] 300 mg PO Q6H #40 cap 02/26/21 Unknown Rx Ibuprofen [Motrin 800 MG tab] 800 mg PO Q8HR PRN #30 tablet 02/26/21 Unknown Rx Ibuprofen [Motrin 600 MG tab] 600 mg PO Q8H PRN #20 tablet 05/03/21 Unknown Rx Sulfamethoxazole/Trimethoprim 1 each PO BID 7 Days #14 tablet 05/03/21 Unknown Rx [Bactrim DS TAB] traMADoL [Ultram 50 MG tab] 50 mg PO Q6HR PRN #10 tablet 05/03/21 Unknown Rx Allergies Allergy/AdvReac Type Severity Reaction Status Date / Time morphine AdvReac Itching Verified 12/01/16 08:06 strawberry AdvReac Swelling Verified 07/06/16 19:25 tomato AdvReac Swelling Verified 07/06/16 19:25 [email or web address] Allergy Swelling Uncoded 12/01/16 08:04 Abscess Boil HPI - HPI Chief Complaint: Skin/Abscess/Foreign Body Stated Complaint: BOIL Time Seen by Provider: 05/03/21 15:34 Home Medications: Previous Rx's Medication Instructions Recorded Last Taken Type Amoxicillin 500 mg PO BID #20 capsule 07/08/17 Unknown Rx Ibuprofen [Motrin] 600 mg PO Q8H PRN #15 tablet 07/08/17 Unknown Rx traMADoL [Ultram] 50 mg PO Q6HR PRN #7 tablet 07/08/17 Unknown Rx Sulfamethoxazole/Trimethoprim 1 each PO BID #20 tablet 03/09/20 Unknown Rx [Bactrim DS TAB] Clindamycin [Clindamycin CAP] 300 mg PO Q6H #40 cap 02/26/21 Unknown Rx Ibuprofen [Motrin 800 MG tab] 800 mg PO Q8HR PRN #30 tablet 02/26/21 Unknown Rx Ibuprofen [Motrin 600 MG tab] 600 mg PO Q8H PRN #20 tablet 05/03/21 Unknown Rx Sulfamethoxazole/Trimethoprim 1 each PO BID 7 Days #14 tablet 05/03/21 Unknown Rx [Bactrim DS TAB] traMADoL [Ultram 50 MG tab] 50 mg PO Q6HR PRN #10 tablet 05/03/21 Unknown Rx Allergies/Adverse Reactions: Allergies Allergy/AdvReac Type Severity Reaction Status Date / Time morphine AdvReac Itching Verified 12/01/16 08:06 strawberry AdvReac Swelling Verified 07/06/16 19:25 tomato AdvReac Swelling Verified 07/06/16 19:25 [email or web address] Allergy Swelling Uncoded 12/01/16 08:04 ED Review of Systems ROS: Stated complaint: BOIL Other details as noted in HPI Comment: All other systems reviewed and negative ED Past Medical Hx - Past Medical History Previous Medical History?: Yes Hx Diabetes: Yes Additional medical history: Vaginal boils - Surgical History Past Surgical History?: Yes Additional Surgical History: right shoulder rotator cuff surgery - Social History Smoking Status: Current Every Day Smoker Substance Use Type: None - Medications Home Medications: Home Medications Medication Instructions Recorded Confirmed Last Taken Type Amoxicillin 500 mg PO BID #20 capsule 07/08/17 Unknown Rx Ibuprofen [Motrin] 600 mg PO Q8H PRN #15 tablet 07/08/17 Unknown Rx traMADoL [Ultram] 50 mg PO Q6HR PRN #7 tablet 07/08/17 Unknown Rx Sulfamethoxazole/Trimethoprim 1 each PO BID #20 tablet 03/09/20 Unknown Rx [Bactrim DS TAB] Clindamycin [Clindamycin CAP] 300 mg PO Q6H #40 cap 02/26/21 Unknown Rx Ibuprofen [Motrin 800 MG tab] 800 mg PO Q8HR PRN #30 tablet 02/26/21 Unknown Rx Ibuprofen [Motrin 600 MG tab] 600 mg PO Q8H PRN #20 tablet 05/03/21 Unknown Rx Sulfamethoxazole/Trimethoprim 1 each PO BID 7 Days #14 tablet 05/03/21 Unknown Rx [Bactrim DS TAB] traMADoL [Ultram 50 MG tab] 50 mg PO Q6HR PRN #10 tablet 05/03/21 Unknown Rx ED Physical Exam - General Limitations: No Limitations General appearance: alert, in no apparent distress - Head Head exam: Present: atraumatic, normocephalic - Eye Eye exam: Present: normal appearance - ENT ENT exam: Present: mucous membranes moist - Respiratory Respiratory exam: Absent: respiratory distress, accessory muscle use - Neurological Exam Neurological exam: Present: alert, oriented X3 - Psychiatric Psychiatric exam: Present: normal affect, normal mood - Skin Skin exam: Present: warm, dry, other (there is induration present to the gluteal cleft, no fluctuance, mild erythema, multiple prior scars from previous I&D, no drainage, no opening, no necrosis, all purpose clerk:DAVY greenberg) ED Course Vital Signs 05/03/21 14:25 Temperature 98.3 F Pulse Rate 82 Respiratory 18 Rate Blood Pressure 121/71 [Right] O2 Sat by Pulse 100 Oximetry ED Medical Decision Making - Medical Decision Making Patient is a 36-year-old female presents emergency room complaints of a boil to her bottom that began 2 to 3 days ago. She states that she has had these frequently and has had to have multiple I&D's in the past. She has never seen a general surgeon. She denies any drainage, fever, nausea, vomiting, diarrhea, chills. No past medical history. Allergy to morphine. Vitals are normal. On exam: there is induration present to the gluteal cleft, no fluctuance, mild erythema, multiple prior scars from previous I&D, no drainage, no opening, no necrosis, all purpose clerk:DAVY greenberg. Examination appears consistent with cellulitis, there is no drainable abscess at this time. Patient given prescription for medications. Advised patient Please take medication as p rescribed. Follow-up with a general surgeon. Please do sitz bath and warm compresses. Return to emergency room for new or worsening symptoms. Critical care attestation.: If time is entered above; I have spent that time in minutes in the direct care of this critically ill patient, excluding procedure time. ED Disposition Clinical Impression: Cellulitis Qualifiers: Site of cellulitis: buttock Qualified Code(s): L03.317 - Cellulitis of buttock Disposition: - TO HOME OR SELFCARE Is pt being admited?: No Does the pt Need Aspirin: No Condition: Stable Instructions: Cellulitis, Adult, How to Take a Sitz Bath Additional Instructions: Please take medication as prescribed. Follow-up with a general surgeon. Please do sitz bath and warm compresses. Return to emergency room for new or worsening symptoms. Prescriptions: Sulfamethoxazole/Trimethoprim [Bactrim DS TAB] 1 each PO BID 7 Days #14 tablet Ibuprofen [Motrin 600 MG tab] 600 mg PO Q8H PRN #20 tablet PRN Reason: Pain traMADoL [Ultram 50 MG tab] 50 mg PO Q6HR PRN #10 tablet PRN Reason: Pain , Severe (7-10) Referrals: PRIMARY CARE, [Primary Care Provider] - 2-3 Days SANDIE WYNN MD [Staff Physician] - 2-3 Days Forms: Work/School Release Form(ED) Time of Disposition: 16:04 Print Language: JAMA[place]
== END 2021-05-03 16:24 | disposition home or self-care (01) ==
LOC: ED 13:10
DX: L03.317 Cellulitis of buttock (principal); F17.200 Nicotine dependence, unspecified, uncomplicated; E11.9 Type 2 diabetes mellitus without complications; Z88.5 Allergy status to narcotic agent; Z91.018 Allergy to other foods; Z79.899 Other long term (current) drug therapy
CPT/HCPCS: 99281

== ENCOUNTER 2021-06-24 08:27 | Emergency (ER) | payer SELFPAY ==
[2021-06-24 09:10] VITALS: BP 104/68
--- NOTE | 2021-06-24 10:05 | Emergency Department Report ---
ED Shortness of Breath HPI - General Chief Complaint: Dyspnea/Respdistress Stated Complaint: BREATHING ISSUES Time Seen by Provider: 06/24/21 09:51 Source: patient Mode of arrival: Ambulatory Limitations: No Limitations - History of Present Illness Initial Comments: 36-year-old female presents to the ER today with complaints of shortness of breath. Patient states that symptoms started this morning. Patient states that she thinks her shortness of breath is related to the dust at work. She states that she was cleaning up at work yesterday and was exposed to a lot of dust. She reports associated right low back pain, which seems to be worse mainly when she moves and she does admit that she was doing lots of strenuous activity yesterday while cleaning at work. She states that she had similar symptoms of shortness of breath about 4 years ago and she was told that it was likely related to the dust at work. Patient denies any chest pain, wheezing, cough, runny nose, nasal congestion, nausea, vomiting abdominal pain, UTI symptoms or any additional symptoms. She states that she was told once that she had diabetes after getting a steroid shot, but she was never started on any medications. She otherwise denies any significant past medical history and denies any PE/DVT risk factors. She does admit to tobacco use. MD Complaint: shortness of breath -: Gradual, This morning - Related Data Previous Rx's Medication Instructions Recorded Last Taken Type Albuterol Mdi (or & Nicu Only) 2 puff IH QID PRN #8.5 gram 06/24/21 Unknown Rx [ProAir HFA Inhaler] Ibuprofen [Motrin] 600 mg PO Q8H PRN #25 tablet 06/24/21 Unknown Rx methOCARBAMOL [Robaxin TAB] 500 mg PO Q8H PRN #30 tablet 06/24/21 Unknown Rx Allergies Allergy/AdvReac Type Severity Reaction Status Date / Time morphine AdvReac Itching Verified 06/24/21 09:10 strawberry AdvReac Swelling Verified 06/24/21 09:10 tomato AdvReac Swelling Verified 06/24/21 09:10 [email or web address] Allergy Swelling Uncoded 12/01/16 08:04 ED Review of Systems ROS: Stated complaint: BREATHING ISSUES Other details as noted in HPI Comment: All other systems reviewed and negative Constitutional: denies: chills, fever Eyes: denies: eye pain, eye discharge, vision change ENT: denies: ear pain, throat pain, dental pain, hearing loss, epistaxis, congestion Respiratory: shortness of breath. denies: cough, SOB with exertion, wheezing Cardiovascular: denies: chest pain, palpitations, dyspnea on exertion Gastrointestinal: denies: abdominal pain, nausea, diarrhea, constipation, hematemesis, hematochezia Genitourinary: denies: urgency, dysuria, frequency, hematuria, discharge, abnormal menses, dyspareunia Musculoskeletal: back pain. denies: joint swelling, arthralgia Skin: denies: rash, lesions Neurological: denies: headache, weakness, paresthesias, confusion, abnormal gait, vertigo Psychiatric: denies: anxiety, depression, auditory hallucinations, visual hallucinations, homicidal thoughts, suicidal thoughts Hematological/Lymphatic: denies: easy bleeding, easy bruising, swollen glands ED Past Medical Hx - Past Medical History Hx Diabetes: Yes Additional medical history: Vaginal boils - Surgical History Additional Surgical History: right shoulder rotator cuff surgery - Social History Smoking Status: Current Every Day Smoker Substance Use Type: None - Medications Home Medications: Home Medications Medication Instructions Recorded Confirmed Last Taken Type Albuterol Mdi (or & Nicu Only) 2 puff IH QID PRN #8.5 gram 06/24/21 Unknown Rx [ProAir HFA Inhaler] Ibuprofen [Motrin] 600 mg PO Q8H PRN #25 tablet 06/24/21 Unknown Rx methOCARBAMOL [Robaxin TAB] 500 mg PO Q8H PRN #30 tablet 06/24/21 Unknown Rx ED Physical Exam - General Limitations: No Limitations General appearance: alert, in no apparent distress - Head Head exam: Present: atraumatic, normocephalic, normal inspection - Eye Eye exam: Present: normal appearance, PERRL, EOMI Pupils: Present: normal accommodation - ENT ENT exam: Present: normal exam, mucous membranes moist, TM's normal bilaterally - Neck Neck exam: Present: normal inspection, full ROM - Respiratory Respiratory exam: Present: normal lung sounds bilaterally. Absent: respiratory distress, wheezes, rales, rhonchi - Cardiovascular Cardiovascular Exam: Present: regular rate, normal rhythm, normal heart sounds - GI/Abdominal GI/Abdominal exam: Present: soft. Absent: distended, tenderness, guarding, rebound - Extremities Exam Extremities exam: Present: normal inspection, full ROM. Absent: pedal edema, calf tenderness - Back Exam Back exam: Present: normal inspection, full ROM (patient with mild right low back pain mainly with ROM of but otherwise she has full ROM ). Absent: tenderness, CVA tenderness (R), CVA tenderness (L), paraspinal tenderness, vertebral tenderness, rash noted - Neurological Exam Neurological exam: Present: alert, oriented X3, CN II-XII intact, normal gait - Psychiatric Psychiatric exam: Present: normal affect, normal mood - Skin Skin exam: Present: intact ED Course Vital Signs 06/24/21 06/24/21 09:08 09:10 Temperature 98.7 F Pulse Rate 89 Respiratory 20 Rate Blood Pressure 104/68 O2 Sat by Pulse 100 Oximetry ED Medical Decision Making - EKG Data EKG shows normal: sinus rhythm Rate: normal (72) - EKG Data Interpretation: normal EKG - Radiology Data Radiology results: report reviewed Patient: NIGEL SERNA MR #: [id number] : 1985 Acct:[id number] Age/Sex: 36 / F ADM Date: 06/24/21 Loc: ED Attending Dr: Ordering Physician: ISHAAN HAYES Date of Service: 06/24/21 Procedure(s): XR chest routine 2V Accession Number(s): [id number] cc: ISHAAN HAYES Fluoro Time In Minutes: XR chest routine 2V INDICATION / CLINICAL INFORMATION: SOB. COMPARISON: None available. FINDINGS: SUPPORT DEVICES: None. HEART /PULMONARY VASCULATURE: No significant abnormality. LUNGS / PLEURA: No significant pulmonary or pleural abnormality. No pneumothorax. ADDITIONAL FINDINGS: No significant additional findings. IMPRESSION: 1. No acute findings. Signer Name: Chaz Guzmán MD Signed: 06/24/2021 11:20 AM Workstation Name: [id number] Transcribed By: JS Dictated By: CHAZ GUZMÁN MD Electronically Authenticated By: CHAZ GUZMÁN MD Signed Date/Time: 06/24/211119 DD/ 19 TD/TT: - Medical Decision Making Patient presented to the ER today with complaints of shortness of breath after being exposed to dust at work yesterday and also lower back pain which started after working yesterday. He states that she had similar short of breath in the past when she was working around dust. Her back pain is mainly with movement. She has no saddle anesthesia, bowel or bladder incontinence. Chest x-ray shows nothing acute. EKG showed normal sinus rhythm without any acute ischemic changes/STEMI or significant dysrhythmia. Patient is currently resting comfortably, watching TV on her phone, she is not in any acute pain or respiratory distress. Her chest is clear to auscultation. She was observed ambulating in the ER with a normal gait and again in no distress. All vital signs are stable. Her port score is currently 0. Other than a questionable history of diabetes and her tobacco use, she has no the CAD risk factors and denied any chest pain. Given patient history, physical exam and current condition I do not suspect, unstable angina, PE, aortic dissection, nor do I suspect cauda equina, epidural abscess, AAA, or any other emergent medical conditions warranting additional testing at this time. Discussed x-ray and EKG results with patient. Recommend she wears a mask while working and also counseled her on stopping smoking. She will be given an inhaler and and pain meds to help her lumbar strain. Patient expressed understanding of all instructions and agree with plan. Patient was stable at time of discharge. Critical care attestation.: If time is entered above; I have spent that time in minutes in the direct care of this critically ill patient, excluding procedure time. ED Disposition Clinical Impression: Dyspnea, Lumbar strain Disposition: 01 HOME / SELF CARE / HOMELESS Is pt being admited?: No Does the pt Need Aspirin: No Condition: Stable Instructions: Shortness of Breath, Adult, [id number], Lumbar Strain Additional Instructions: Take the motrin and muscle relaxer as needed for back pain. Use the albuterol inhaler as needed for SOB but I would recommend wearing industrial mask if you have to work around any dust. Also it is important that you try to stop smoking. Follow up with your PCP next week but return to ED if symptoms worsens in anyway. Prescriptions: Ibuprofen [Motrin] 600 mg PO Q8H PRN #25 tablet PRN Reason: Pain Albuterol Mdi (or & Nicu Only) [ProAir HFA Inhaler] 2 puff IH QID PRN #8.5 gram PRN Reason: Shortness Of Breath methOCARBAMOL [Robaxin TAB] 500 mg PO Q8H PRN #30 tablet PRN Reason: Muscle Spasm Referrals: DWIGHT PINEDO MD [Staff Physician] - 3-5 Days Forms: Work/School Release Form(ED) Time of Disposition: 11:33
--- NOTE | 2021-06-24 11:24 | XRay Report ---
XR chest routine 2V INDICATION / CLINICAL INFORMATION: SOB. COMPARISON: None available. FINDINGS: SUPPORT DEVICES: None. HEART /PULMONARY VASCULATURE: No significant abnormality. LUNGS / PLEURA: No significant pulmonary or pleural abnormality. No pneumothorax. ADDITIONAL FINDINGS: No significant additional findings. IMPRESSION: 1. No acute findings. Signer Name: Noe Guzmán MD Signed: 06/24/2021 11:20 AM Workstation Name: [id number]
--- NOTE | 2021-06-25 10:25 | Electrocardiograph Report ---
[facility] Test Date: 2021-06-24 Test Time: 10:08:54 Pat Name: NIGEL SERNA Department: Room: Gender: F Manager Med Surg: TAM : 1985 Requested By: ROSENDO COX Order Number: [id number] Reading MD: Dane Penaloza Measurements Intervals [place] Rate: 72 P: 63 CA: 172 QRS: 57 QRSD: 81 T: 33 QT: 384 QTc: 419 Interpretive Statements Sinus rhythm nonspecific st-t No previous ECG available for comparison Electronically Signed On 06-25-2021 10:24:56 EDT by Dane Penaloza
== END 2021-06-24 12:16 | disposition home or self-care (01) ==
LOC: ED 08:27
DX: S39.012A Strain of muscle, fascia and tendon of lower back, initial encounter (principal); R06.00 Dyspnea, unspecified; F17.200 Nicotine dependence, unspecified, uncomplicated; E11.9 Type 2 diabetes mellitus without complications; Z79.899 Other long term (current) drug therapy; Z88.6 Allergy status to analgesic agent; Z91.018 Allergy to other foods; Z98.890 Other specified postprocedural states; X58.XXXA Exposure to other specified factors, initial encounter; Y93.89 Activity, other specified; Y92.89 Other specified places as the place of occurrence of the external cause; Y99.0 Civilian activity done for income or pay
CPT/HCPCS: 71046; 93005

== ENCOUNTER 2022-01-17 21:56 | Emergency (ER) | payer SELFPAY ==
[2022-01-17 22:00] VITALS: BP 113/64
[2022-01-18] MEDS ORDERED: HYDROcodone/ACETAMINOPHEN 5-325 MG TAB PO ONE (04:40)
[2022-01-18] MEDS ORDERED: cephALEXin 500 MG CAP PO ONE (04:40)
[2022-01-18] MEDS ORDERED: LIDOCAINE (1%) 10 MG/1 ML VIAL 20 ML MDV INFILTRATI ONE (04:40)
[2022-01-18] MEDS ORDERED: diphenhydrAMINE 25 MG CAP PO ONE (04:41)
--- NOTE | 2022-01-18 05:47 | Emergency Department Report ---
- General Chief complaint: Skin Rash Stated complaint: BOIL ON BUTT Time Seen by Provider: 01/18/22 04:41 Source: patient Mode of arrival: Ambulatory Limitations: No Limitations - History of Present Illness Initial comments: Patient 36-year-old -[place] female who presents for boil to upper buttocks. This is a recurrent problem for this patient occurring 2-3 times per year. Patient denies fevers chills no rigors no malaise, no nausea no vomiting. Is been no problem with bowel movements. Patient noted some purulent drainage tonight prompting her to present to ED. Patient does not have diabetes. Symptoms are exacerbated by palpation and sitting. Symptoms are relieved by nothing tried. Pain is 5/10. - Related Data Previous Rx's Medication Instructions Recorded Last Taken Type Albuterol Mdi (or & Nicu Only) 2 puff IH QID PRN #8.5 gram 06/24/21 Unknown Rx [ProAir HFA Inhaler] Ibuprofen [Motrin] 600 mg PO Q8H PRN #25 tablet 06/24/21 Unknown Rx methOCARBAMOL [Robaxin TAB] 500 mg PO Q8H PRN #30 tablet 06/24/21 Unknown Rx cephALEXin [Keflex] 500 mg PO TID 7 Days #21 cap 01/18/22 Unknown Rx traMADoL [Ultram] 50 mg PO Q6HR PRN #12 tablet 01/18/22 Unknown Rx Allergies Allergy/AdvReac Type Severity Reaction Status Date / Time morphine AdvReac Itching Verified 06/24/21 09:10 strawberry AdvReac Swelling Verified 06/24/21 09:10 tomato AdvReac Swelling Verified 06/24/21 09:10 [email or web address] Allergy Swelling Uncoded 12/01/16 08:04 Abscess Boil HPI - HPI Chief Complaint: Skin Rash Stated Complaint: BOIL ON BUTT Time Seen by Provider: 01/18/22 04:41 Home Medications: Previous Rx's Medication Instructions Recorded Last Taken Type Albuterol Mdi (or & Nicu Only) 2 puff IH QID PRN #8.5 gram 06/24/21 Unknown Rx [ProAir HFA Inhaler] Ibuprofen [Motrin] 600 mg PO Q8H PRN #25 tablet 06/24/21 Unknown Rx methOCARBAMOL [Robaxin TAB] 500 mg PO Q8H PRN #30 tablet 06/24/21 Unknown Rx cephALEXin [Keflex] 500 mg PO TID 7 Days #21 cap 01/18/22 Unknown Rx traMADoL [Ultram] 50 mg PO Q6HR PRN #12 tablet 01/18/22 Unknown Rx Allergies/Adverse Reactions: Allergies Allergy/AdvReac Type Severity Reaction Status Date / Time morphine AdvReac Itching Verified 06/24/21 09:10 strawberry AdvReac Swelling Verified 06/24/21 09:10 tomato AdvReac Swelling Verified 06/24/21 09:10 [email or web address] Allergy Swelling Uncoded 12/01/16 08:04 ED Review of Systems ROS: Stated complaint: BOIL ON BUTT Other details as noted in HPI Constitutional: denies: chills, fever Eyes: denies: eye pain, eye discharge, vision change ENT: denies: ear pain, throat pain Respiratory: denies: cough, shortness of breath, wheezing Cardiovascular: denies: chest pain, palpitations Endocrine: no symptoms reported Gastrointestinal: denies: abdominal pain, nausea, vomiting, diarrhea Genitourinary: as per HPI Musculoskeletal: denies: back pain, joint swelling, arthralgia Skin: other (abscess buttock ) Neurological: denies: headache, weakness, paresthesias Psychiatric: denies: anxiety, depression Hematological/Lymphatic: denies: easy bleeding, easy bruising ED Past Medical Hx - Past Medical History Hx Diabetes: Yes Additional medical history: Vaginal boils - Surgical History Additional Surgical History: right shoulder rotator cuff surgery - Social History Smoking Status: Current Every Day Smoker Substance Use Type: None - Medications Home Medications: Home Medications Medication Instructions Recorded Confirmed Last Taken Type Albuterol Mdi (or & Nicu Only) 2 puff IH QID PRN #8.5 gram 06/24/21 Unknown Rx [ProAir HFA Inhaler] Ibuprofen [Motrin] 600 mg PO Q8H PRN #25 tablet 06/24/21 Unknown Rx methOCARBAMOL [Robaxin TAB] 500 mg PO Q8H PRN #30 tablet 06/24/21 Unknown Rx cephALEXin [Keflex] 500 mg PO TID 7 Days #21 cap 01/18/22 Unknown Rx traMADoL [Ultram] 50 mg PO Q6HR PRN #12 tablet 01/18/22 Unknown Rx ED Physical Exam - General Limitations: No Limitations General appearance: alert, in no apparent distress - Head Head exam: Present: atraumatic, normocephalic - Eye Eye exam: Present: normal appearance - ENT ENT exam: Present: mucous membranes moist - Neck Neck exam: Present: normal inspection - Respiratory Respiratory exam: Present: normal lung sounds bilaterally. Absent: respiratory distress, wheezes - Cardiovascular Cardiovascular Exam: Present: regular rate, normal rhythm, normal heart sounds. Absent: systolic murmur, diastolic murmur, rubs, gallop - GI/Abdominal GI/Abdominal exam: Present: soft, normal bowel sounds. Absent: distended, tenderness - Rectal Rectal exam: Present: deferred - Extremities Exam Extremities exam: Present: normal inspection, full ROM - Back Exam Back exam: Present: normal inspection, full ROM. Absent: tenderness - Neurological Exam Neurological exam: Present: alert, oriented X3, CN II-XII intact, normal gait, reflexes normal. Absent: motor sensory deficit - Expanded Neurological Exam Expanded Patient oriented to: Present: person, place, time Best Eye Response ([place]): (4) open spontaneously Best Motor Response ([place]): (6) obeys commands Best Verbal Response ([place]): (5) oriented [place] Total: 15 - Psychiatric Psychiatric exam: Present: normal affect, normal mood - Skin Skin exam: Present: warm, dry, intact, erythema (buttock sacrum 2x3 abscess fluctuant ). Absent: rash ED Course Vital Signs 01/17/22 01/18/22 21:59 05:21 Temperature 99.5 F Pulse Rate 105 H Respiratory 18 16 Rate Blood Pressure 113/64 O2 Sat by Pulse 97 Oximetry - I & D Posterior Sacrum Type of Procedure: Simple Blade Size: 11 I & D Procedure: betadine prep, sterile drapes applied, sterile dressing applied, gauze wick placed (Buttocks sacrum abscess 2 x 3 cm fluctuant erythema.) Progress: Site cleaned with Betadine solution anesthesia 1% lidocaine approximately 8 cc anesthesia was achieved, incision with 11 blade scalpel x1 loculations broken up with 6 inch blunt forceps moderate purulent bloody drainage. Wound irrigated with 40 cc sterile saline. Sterile dressing applied all bleeding is controlled patient tolerated procedure with minimal distress. Patient given discharge instructions including antibiotic regimen and follow-up primary care doctor in 2 days for wound check and symptoms to return to ED including infection. He verbalized agreement and understanding of same. Patient DC'd home in stable condition at this time. ED Medical Decision Making - Medical Decision Making Buttocks abscess see procedure note. Sterile dressings intact all bleeding is controlled patient tolerated with minimal distress. Patient DC'd home with prescriptions. Patient will follow primary care doctor in 2 days for wound check. Patient will return to ED should symptoms worsen. Patient verbalized agreement understanding with discharge plan. Patient is currently alert oriented x3 amatory with steady gait patient DC'd home in stable condition at this time. Critical care attestation.: If time is entered above; I have spent that time in minutes in the direct care of this critically ill patient, excluding procedure time. ED Disposition Clinical Impression: Abscess of buttock Disposition: 01 HOME / SELF CARE / HOMELESS Is pt being admited?: No Does the pt Need Aspirin: No Condition: Stable Instructions: Skin Abscess, Incision and Drainage, Care After Additional Instructions: Take all medications as prescribed, sitz bath as directed and agreed. Dressing change daily as directed. Follow-up with your doctor in 2 days for wound check return to emergency department should symptoms worsen. Prescriptions: cephALEXin [Keflex] 500 mg PO TID 7 Days #21 cap traMADoL [Ultram] 50 mg PO Q6HR PRN #12 tablet PRN Reason: Pain Referrals: [facility] [Provider Group] - 3-5 Days Forms: Work/School Release Form(ED) Time of Disposition: 05:55
== END 2022-01-18 06:04 | disposition home or self-care (01) ==
LOC: ED 21:56
DX: L02.31 Cutaneous abscess of buttock (principal); Z91.018 Allergy to other foods; Z88.5 Allergy status to narcotic agent
CPT/HCPCS: 10060; 99282; J3490

== ENCOUNTER 2022-07-16 19:22 | Emergency (ER) | payer MEDICAID ==
--- NOTE | 2022-07-16 20:23 | XRay Report ---
CHEST 2 VIEWS INDICATION / CLINICAL INFORMATION: COUGH. COMPARISON: 06/24/2021 FINDINGS: SUPPORT DEVICES: None. HEART / MEDIASTINUM: No significant abnormality. LUNGS / PLEURA: No significant pulmonary or pleural abnormality. No pneumothorax. ADDITIONAL FINDINGS: No significant additional findings. IMPRESSION: 1. No acute findings. Signer Name: Vivek Moffett MD Signed: 07/16/2022 8:19 PM Workstation Name: [id number]
[2022-07-16] MEDS ORDERED: predniSONE 20 MG TAB PO ONE (22:21)
--- NOTE | 2022-07-16 22:37 | Emergency Department Report ---
ED Shortness of Breath HPI - General Chief Complaint: Dyspnea/Respdistress Stated Complaint: WHEEZING/DIZZY/BLACK MOLD Time Seen by Provider: 07/16/22 22:14 Source: patient Mode of arrival: Ambulatory Limitations: No Limitations - History of Present Illness Initial Comments: 37-year-old black female with a past medical history of asthma and diabetes pre sents to the emergency department for evaluation of intermittent shortness of breath and dizziness. She states that over the past 2 years she has been exposed to black mold at her job at [employer], and since then, she has had the symptoms intermittently. She states that her core man told her that she needed to come in for a evaluation. She states that she is having some mild shortness of breath now and dizziness. She denies fever, cough, nausea, vomiting, but states that she does have intermittent dizziness. MD Complaint: shortness of breath -: year(s) (2) Consistency: intermittent Known History Of: asthma Associated Symptoms: chest pain Treatments Prior to Arrival: bronchodilator - Related Data Home Oxygen Therapy: No Previous Rx's Medication Instructions Recorded Last Taken Type Albuterol Mdi (or & Nicu Only) 2 puff IH QID PRN #8.5 gram 06/24/21 Unknown Rx [ProAir HFA Inhaler] Ibuprofen [Motrin] 600 mg PO Q8H PRN #25 tablet 06/24/21 Unknown Rx methOCARBAMOL [Robaxin TAB] 500 mg PO Q8H PRN #30 tablet 06/24/21 Unknown Rx cephALEXin [Keflex] 500 mg PO TID 7 Days #21 cap 01/18/22 Unknown Rx traMADoL [Ultram] 50 mg PO Q6HR PRN #12 tablet 01/18/22 Unknown Rx methylPREDNISolone [Medrol 4MG 4 mg PO KVO #1 07/16/22 Unknown Rx DOSEPAK (21 tabs)] Allergies Allergy/AdvReac Type Severity Reaction Status Date / Time morphine AdvReac Itching Verified 06/24/21 09:10 strawberry AdvReac Swelling Verified 06/24/21 09:10 tomato AdvReac Swelling Verified 06/24/21 09:10 [email or web address] Allergy Swelling Uncoded 12/01/16 08:04 ED Review of Systems ROS: Stated complaint: WHEEZING/DIZZY/BLACK MOLD Other details as noted in HPI Comment: All other systems reviewed and negative Constitutional: denies: chills, fever ENT: denies: congestion Respiratory: shortness of breath. denies: cough, orthopnea, SOB with exertion, wheezing Cardiovascular: denies: chest pain, palpitations, dyspnea on exertion, orthopnea, edema, syncope, paroxysmal nocturnal dyspnea Gastrointestinal: denies: abdominal pain, nausea, vomiting Genitourinary: denies: urgency, dysuria Musculoskeletal: denies: back pain Neurological: denies: headache, weakness ED Past Medical Hx - Past Medical History Hx Diabetes: Yes (DMII) Additional medical history: Vaginal boils - Surgical History Past Surgical History?: Yes Additional Surgical History: right shoulder rotator cuff surgery - Social History Smoking Status: Unknown if ever smoked - Medications Home Medications: Home Medications Medication Instructions Recorded Confirmed Last Taken Type Albuterol Mdi (or & Nicu Only) 2 puff IH QID PRN #8.5 gram 06/24/21 Unknown Rx [ProAir HFA Inhaler] Ibuprofen [Motrin] 600 mg PO Q8H PRN #25 tablet 06/24/21 Unknown Rx methOCARBAMOL [Robaxin TAB] 500 mg PO Q8H PRN #30 tablet 06/24/21 Unknown Rx cephALEXin [Keflex] 500 mg PO TID 7 Days #21 cap 01/18/22 Unknown Rx traMADoL [Ultram] 50 mg PO Q6HR PRN #12 tablet 01/18/22 Unknown Rx methylPREDNISolone [Medrol 4MG 4 mg PO KVO #1 07/16/22 Unknown Rx DOSEPAK (21 tabs)] ED Physical Exam - General Limitations: No Limitations General appearance: alert, in no apparent distress - Head Head exam: Present: atraumatic, normocephalic - Eye Eye exam: Present: normal appearance. Absent: conjunctival injection, periorbital swelling, periorbital tenderness - ENT ENT exam: Absent: normal exam (Bilateral nasal mucosal edema), normal orophraynx (Erythema noted to posterior) - Neck Neck exam: Present: normal inspection. Absent: tenderness, lymphadenopathy - Respiratory Respiratory exam: Present: normal lung sounds bilaterally. Absent: respiratory distress, wheezes, rales, rhonchi, stridor, chest wall tenderness - Cardiovascular Cardiovascular Exam: Present: tachycardia, normal heart sounds - GI/Abdominal GI/Abdominal exam: Present: soft, normal bowel sounds. Absent: distended, tenderness, guarding - Extremities Exam Extremities exam: Present: normal inspection, full ROM, normal capillary refill. Absent: tenderness, pedal edema, joint swelling, calf tenderness - Back Exam Back exam: Present: normal inspection. Absent: CVA tenderness (R), CVA tenderness (L) - Neurological Exam Neurological exam: Present: alert, oriented X3, CN II-XII intact, normal gait - Psychiatric Psychiatric exam: Present: normal affect, normal mood - Skin Skin exam: Present: warm, dry, intact, normal color ED Course Vital Signs 07/16/22 19:27 Temperature 99.0 F Pulse Rate 114 H Respiratory 20 Rate Blood Pressure 132/71 O2 Sat by Pulse 99 Oximetry ED Medical Decision Making - Radiology Data Radiology results: report reviewed, image reviewed - Medical Decision Making 37-year-old black female with a past medical history of asthma and diabetes presents to the emergency department for evaluation of intermittent shortness of breath and dizziness. She states that over the past 2 years she has been exposed to black mold at her job at [employer], and since then, she has had the symptoms intermittently. She states that her core man told her that she needed to come in for a evaluation. She states that she is having some mild sh ortness of breath now and dizziness. She denies fever, cough, nausea, vomiting, but states that she does have intermittent dizziness. Chest x-ray unremarkable. Physical exam most consistent with URI with with congestion. Patient will be treated with Medrol Dosepak. She is advised to follow-up at the toxicology clinic at [facility] for further evaluation of mold exposure. She is advised to return to the emergency department as needed. She verbalizes understanding of and agreement with plan of care. Critical care attestation.: If time is entered above; I have spent that time in minutes in the direct care of this critically ill patient, excluding procedure time. ED Disposition Clinical Impression: URI (upper respiratory infection) Qualifiers: URI type: unspecified viral URI Qualified Code(s): J06.9 - Acute upper respiratory infection, unspecified Disposition: HOME / SELF CARE / HOMELESS Is pt being admited?: No Does the pt Need Aspirin: No Condition: Stable Instructions: Upper Respiratory Infection, Adult, [id number] Additional Instructions: Take medications as prescribed. Follow-up at the toxicology clinic at [facility] for further evaluation of mold exposure. Return to the emergency department as needed. Prescriptions: methylPREDNISolone [Medrol 4MG DOSEPAK (21 tabs)] 4 mg PO KVO #1 Referrals: Marvin Carmona [Other] - 3-5 Days Forms: Work/School Release Form(ED) Time of Disposition: 22:41
[2022-07-16 22:51] VITALS: BP 111/66
== END 2022-07-16 23:00 | disposition home or self-care (01) ==
LOC: ED 19:22
DX: J06.9 Acute upper respiratory infection, unspecified (principal); Z88.5 Allergy status to narcotic agent; Z91.018 Allergy to other foods; E11.9 Type 2 diabetes mellitus without complications
CPT/HCPCS: 71046; 99283